=== PATIENT | male | born 1995 | race American Indian/Alaskan Native ===

== ENCOUNTER → 2019-01-24 | Outpatient (REF) | payer OTHER | LOC: M SFHCLERA 15:47 | PROVIDERS: ATTEND Nurse Practitioner Family | DX: R50.9 Fever, unspecified (principal) ==

== ENCOUNTER 2020-09-18 12:10 | Emergency (ER) | payer OTHER ==
[~2020-09-18] VITALS: Ht 170.2 cm; Wt 77.9 kg
[2020-09-18] MEDS ORDERED: MELO15TA28 PO (12:16)
[2020-09-18] MEDS ORDERED: ACETAMINOPHEN 500 MG TAB PO ONE (13:30)
[2020-09-18] MEDS ORDERED: BACLOFEN 10 MG TAB PO ONE (13:30)
--- NOTE | 2020-09-18 14:14 | REP ---
INDICATION: TTP. COMPARISON: None. TECHNIQUE: Three views FINDINGS: No prior study. Pedicles, spinous and transverse processes on the AP view are normal. The posterior rib articulations and medial clavicles intact. There is no visible compression deformity or destructive bone lesion. Cervicothoracic junction and visualized cervical spine on the swimmer's view normal. IMPRESSION: Negative thoracic spine for compression fracture or abnormalities of visible posterior ribs and posterior elements. The cervicothoracic junction also unremarkable. <Electronically signed by Jordy Rand > 09/18/20 [id number]
--- NOTE | 2020-09-18 14:17 | REP ---
INDICATION: TTP. COMPARISON: Thoracic spine this date. TECHNIQUE: Five views FINDINGS: Five views of the lumbosacral spine show no acute fracture, dislocation or subluxation. The intervertebral disc spaces are symmetric and well maintained. There is no spondylolysis or spondylolisthesis. The pedicles are intact bilaterally and there is no destructive osseous lesion. Incidental note of linear lucency in the right transverse process L1 that is a vertical line but very smoothly marginated indicating old trauma or ununited process. This is not acute. Slight loss of lordosis may reflect some underlying spasm. IMPRESSION: Mild loss of lordosis but no acute bony abnormality.. <Electronically signed by Jordy Rand > 09/18/20 [id number]
[2020-09-18 14:33] LABS: APPEARANCE, URINE HAZY (CLEAR); BACTERIA, URINE AUTO NEGATIVE (NEGATIVE); BILIRUBIN, URINE AUTO NEGATIVE (NEGATIVE); BLOOD, URINE BLOOD NEGATIVE (NEGATIVE); COLOR, URINE YELLOW (YELLOW); GLUCOSE, URINE (UA) AUTO NEGATIVE (NEGATIVE); KETONE, URINE AUTO NEGATIVE (NEGATIVE); LEUKOCYTE ESTERASE, URINE AUTO NEGATIVE (NEGATIVE); NITRITE, URINE AUTO NEGATIVE (NEGATIVE); PROTEIN, URINE AUTO NEGATIVE (NEGATIVE); RBC, URINE AUTO 2 /HPF (0-3); SPECIFIC GRAVITY URINE AUTO 1.012 (1.002-1.035); SQUAMOUS EPITHELIAL CELL UR AU 0 /HPF (0-6); UROBILINOGEN, URINE AUTO 0.2 mg/dL (0.0-2.0); WBC, URINE AUTO 1 /HPF (0-3)
[2020-09-18] MEDS ORDERED: BACL10TA2 PO (15:04)
[2020-09-18 15:14] VITALS: BP 124/84
== END 2020-09-18 15:15 | disposition home or self-care (01) ==
LOC: M ED 12:10
DX: G89.29 Other chronic pain (principal); M54.6 Pain in thoracic spine; F17.200 Nicotine dependence, unspecified, uncomplicated